=== PATIENT | male | born 1995 | race Caucasian/White ===

== ENCOUNTER 2020-10-28 22:25 | Emergency (ER) | payer OTHER ==
[~2020-10-28] VITALS: Ht 188 cm; Wt 104.3 kg
[2020-10-28 22:28] VITALS: BP 153/87
[2020-10-28] MEDS ORDERED: LEXAPRO 10 MG T10 M1 PO (22:31)
[2020-10-28] MEDS ORDERED: OMEPRAZOLE 20 M20 M1 PO (22:31)
== END 2020-10-28 23:31 | disposition home or self-care (01) ==
LOC: ER 22:25
DX: S61.216A Laceration without foreign body of right little finger without damage to nail, initial encounter (principal); Z79.899 Other long term (current) drug therapy; W26.8XXA Contact with other sharp object(s), not elsewhere classified, initial encounter; Y93.89 Activity, other specified; Y92.89 Other specified places as the place of occurrence of the external cause; Y99.8 Other external cause status